=== PATIENT | male | born 1980 | race Caucasian/White ===

== ENCOUNTER 2020-03-23 10:12 | Emergency (ER) | payer OTHER ==
--- NOTE | 2020-03-23 11:16 | RAD REPORT ---
EXAM DESCRIPTION: CT - Head Brain Wo Cont - 03/23/2020 11:08 am CLINICAL HISTORY: VISUAL DISTURBANCES Headache, drowsiness COMPARISON: No comparisons TECHNIQUE: All CT scans are performed using dose optimization technique as appropriate and may inclu de automated exposure control or mA/KV adjustment according to patient size. FINDINGS: No intracranial hemorrhage, hydrocephalus or extra-axial fluid collection.No areas of brai n edema or evidence of midline shift. The paranasal sinuses and mastoids are clear. The calvarium is intact. IMPRESSION: No acute intracranial abnormality.
[2020-03-23 11:33] LABS: Absolute Lymphocytes (CBC) 1.5 K/uL (0.7-4.9); Basophils % 0.7 % (0-1.3); Hematocrit 49.8 % (39.6-49.0); Lymphocytes % 28.9 % (15.3-44.8); MPV 8.6 fL (7.6-11.3); RBC Red Blood Cell Count 5.86 M/uL (4.33-5.43)
[2020-03-23 11:41] LABS: Protime INR 0.97
--- NOTE | 2020-03-23 11:46 | RAD REPORT ---
EXAM DESCRIPTION: CT - Head angio - 03/23/2020 11:30 am CLINICAL HISTORY: transient blurred left eye vision Headache, drowsiness COMPARISON: Head Brain Wo Cont dated 03/23/2020; Neck Angio dated 03/23/2020 TECHNIQUE: CT angiography of the head was performed with MIPs. All CT scans are performed using dose optimization technique as appropriate and may include automated exposure control or mA/KV adjustment according to patient size. FINDINGS: No evidence of aneurysm is detected. No flow-limiting stenosis or vascular malformation id entified. Antegrade flow is seen in the vertebral arteries. Left-sided dominant vertebral artery. The visualized dural venous sinuses are patent. IMPRESSION: No significant flow abnormality is detected.
--- NOTE | 2020-03-23 11:51 | RAD REPORT ---
EXAM DESCRIPTION: CT - Neck Angio - 03/23/2020 11:33 am CLINICAL HISTORY: neck pain, blurred vision Headache, drowsiness COMPARISON: No comparisons TECHNIQUE: CT angiography of the neck vessels was performed with MIPs. All CT scans are performed using dose optimization technique as appropriate and may include automated exposure control or mA/KV adjustment according to patient size. FINDINGS: A left aortic arch is identified with normal three vessel configuration of the great vesse ls. No significant flow abnormality is seen of the common carotid bilaterally. No significant stenosis is identified involving the cervical segments of both internal carotid arteri es. Normal flow is seen within both vertebral arteries. IMPRESSION: No significant flow abnormality of the neck vessels is identified.
--- NOTE | 2020-03-23 12:21 | ER ---
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 Also reports pain hb in back of neck x 1 month. VAN NEGATIVE. Coronavirus screen: Proceed with normal triage. Ebola Screen: No symptoms or risks identified at this time. Initial Sepsis Screen: Does the patient meet any 2 criteria? No. Patient's initial sepsis screen is negative. Does the patient have a suspected source of infection? No. Patient's initial sepsis screen is negative. Risk Assessment: Do you want to hurt yourself or someone else? Patient reports no desire to harm self or others. Onset of symptoms was March 23, 2020. 10:36 Method Of Arrival: Ambulatory hb 10:36 Acuity: JOSE ANTONIO 3 hb Historical: - Allergies: 10:39 No Known Allergies; hb - Home Meds: 10:39 None [Active]; hb - PMHx: 10:39 Hypertension; High Cholesterol; hb - PSHx: 10:39 None; hb - Immunization history:: Adult Immunizations up to date. - Social history:: Smoking status: Patient denies any tobacco usage or history of. - Family history:: not pertinent. - Hospitalizations: : No recent hospitalization is reported. Screenin:53 Abuse screen: Denies threats or abuse. Nutritional screening: No deficits noted. Tuberculosis screening: No symptoms or risk factors identified. Fall Risk None identified. Assessment: 11:21 General: Appears in no apparent distress. Behavior is calm, cooperative. Pain: Complains of pain in occipital area and base of the skull Pain does not radiate. Quality of pain is described as burning, tender, Pain began about 1 month. Neuro: Level of Consciousness is awake, alert, obeys commands, Oriented to person, place, time, situation, Appropriate for age Software Systems Architect are equal bilaterally Gait is steady, Speech is normal, Facial symmetry appears normal, Pupils are PERRLA, Intact Reports trouble with vision in left eye for approx 30 mins today. Resolved as he arrived to ER. Cardiovascular: Heart tones S1 S2 present Capillary refill < 3 seconds Patient's skin is warm and dry. Respiratory: Airway is patent Respiratory effort is even, unlabored, Respiratory pattern is regular, symmetrical. Derm: Skin is intact, is healthy with good turgor, Skin is pink, warm \T\ dry. Musculoskeletal: Circulation, motion, and sensation intact. Capillary refill < 3 seconds. 12:25 Reassessment: Discharge instructions given. Advised Pt to schedule follow up appt and return if symptoms return or worsen. pt voiced understanding. Vital Signs: 10:36 BP 157 / 87; Pulse 88; Resp 16; Temp 97.8; Pulse Ox 97% ; Weight 99.79 kg; Height 6 ft. hb 2 in. (187.96 cm); Pain 2/10; 11:03 BP 141 / 84; Pulse 81; Resp 18; Pulse Ox 98% ; ah 12:00 BP 129 / 85; Pulse 69; Resp 17; Pulse Ox 95% ; ah 10:36 Body Mass Index 28.25 (99.79 kg, 187.96 cm) hb ED Course: 10:18 Patient arrived in ED. fj1 10:39 Triage completed. hb 10:39 Arm band placed on. hb 10:53 Gerardo Petty MD is Attending Physician. rn 11:09 Head Brain Wo Cont CT In Process Unspecified. EDMS 11:09 Cyndi Stewart, RN is Primary Nurse. ah 11:20 Initial lab(s) drawn, by ms, sent to lab. Missed attempt(s): 20 gauge in right ah antecubital area. Bleeding controlled, band aid applied, catheter tip intact. 11:30 CT Head Angio In Process Unspecified. EDMS 11:31 CT Neck Angio In Process Unspecified. EDMS 11:52 Inserted saline lock: 22 gauge in left antecubital area, using aseptic technique. ah 11:53 Patient has correct armband on for positive identification. Bed in low position. Call light in reach. Side rails up X 1. Pulse ox on. NIBP on. 12:20 Blessing Lopez MD is Referral Physician. rn 12:33 No provider procedures requiring assistance completed. IV discontinued, intact, bleeding controlled, No redness/swelling at site. Pressure dressing applied. Administered Medications: No medications were administered Outcome: 12:20 Discharge ordered by . rn 12:34 Discharged to home ambulatory. 12:34 Condition: good 12:34 Discharge instructions given to patient, Instructed on discharge instructions, follow up and referral plans. Demonstrated understanding of instructions, follow-up care. 12:35 Patient left the ED. Signatures: Dispatcher [employer] Gerardo Wick MD MD rn Baxter, Heather RN Mac Escamilla fj1 Cyndi Stewart RN JALEN
--- NOTE | 2020-03-23 12:21 | EDPHYS ---
Physician Documentation [facility] Name: Koko Davis Age: 39 yrs Sex: Male : 1980 Arrival Date: 03/23/2020 Time: 10:18 Bed 18 Private MD: ED Physician Gerardo Petty HPI: 03/23 11:37 This 39 yrs old Male presents to ER via Ambulatory with complaints of Blurred rn Vision, Neck Problem. 11:37 The patient or guardian complains of pain. The symptoms are located diffusely. Onset: rn The symptoms/episode began/occurred 1 month(s) ago. Associated signs and symptoms: Pertinent positives: visual disturbance. The pain does not radiate. Modifying factors: The symptoms are alleviated by nothing. the symptoms are aggravated by nothing. Severity of symptoms: At their worst the symptoms were mild, in the emergency department the symptoms have resolved. The patient has not experienced similar symptoms in the past. Reports neck pain for 1 month, no trauma, assoc with left visual disturbance today, resolved prior to arrival. Reports had "mirage" linear visual disturbance left eye, slowly improved, denies loss of vision. No eye pain. Has never happened before. Not assoc with other neurological complaints. Now resolved and back to baseline.. Historical: - Allergies: 10:39 No Known Allergies; hb - Home Meds: 10:39 None [Active]; hb - PMHx: 10:39 Hypertension; High Cholesterol; hb - PSHx: 10:39 None; hb - Immunization history:: Adult Immunizations up to date. - Social history:: Smoking status: Patient denies any tobacco usage or history of. - Family history:: not pertinent. - Hospitalizations: : No recent hospitalization is reported. ROS: 11:37 Constitutional: Negative for fever, chills, and weight loss, Eyes: Negative for injury, rn pain, redness, and discharge, Neck: Negative for injury, and swelling, Cardiovascular: Negative for chest pain, palpitations, and edema, Respiratory: Negative for shortness of breath, cough, wheezing, and pleuritic chest pain, Abdomen/GI: Negative for abdominal pain, nausea, vomiting, diarrhea, and constipation, MS/Extremity: Negative for injury and deformity, Skin: Negative for injury, rash, and discoloration, Neuro: Negative for headache, weakness, numbness, tingling, and seizure. Exam: 11:37 Constitutional: This is a well developed, well nourished patient who is awake, alert, rn and in no acute distress. Standing in room. Head/Face: Normocephalic, atraumatic. Eyes: Pupils equal round and reactive to light, extra-ocular motions intact. Lids and lashes normal. Conjunctiva and sclera are non-icteric and not injected. Cornea within normal limits. Periorbital areas with no swelling, redness, or edema. No nystagmus. Cardiovascular: Regular rate and rhythm. No pulse deficits. Respiratory: Speaking full sentences. No increased work of breathing, no retractions or nasal flaring. Skin: Warm, dry MS/ Extremity: Pulses equal, no cyanosis. Neuro: Awake and alert, GCS 15, oriented to person, place, time, and situation. Cranial nerves II-XII grossly intact. Motor strength 5/5 in all extremities. Sensory grossly intact. Cerebellar exam normal. Normal gait. Vital Signs: 10:36 BP 157 / 87; Pulse 88; Resp 16; Temp 97.8; Pulse Ox 97% ; Weight 99.79 kg; Height 6 ft. hb 2 in. (187.96 cm); Pain 2/10; 11:03 BP 141 / 84; Pulse 81; Resp 18; Pulse Ox 98% ; ah 12:00 BP 129 / 85; Pulse 69; Resp 17; Pulse Ox 95% ; ah 10:36 Body Mass Index 28.25 (99.79 kg, 187.96 cm) hb MDM: 10:53 Patient medically screened. rn 12:18 Differential diagnosis: arthritis, Cervical Disc Herniation Cervical Raiculopathy architect intern problem, aneurysm, dissection, amaurosis, ocular migraine, vascular spasm, retinal problem. Data reviewed: vital signs, nurses notes, lab test result(s), radiologic studies, CT scan, and as a result, I will discharge patient. Counseling: I had a detailed discussion with the patient and/or guardian regarding: the historical points, exam findings, and any diagnostic results supporting the discharge/admit diagnosis, lab results, radiology results, the need for outpatient follow up, to return to the emergency department if symptoms worsen or persist or if there are any questions or concerns that arise at home. Response to treatment: the patient's symptoms have resolved after treatment, and as a result, I will discharge patient. Special discussion: I discussed with the patient/guardian in detail that at this point there is no indication for admission to the hospital. It is understood, however, that if the symptoms persist or worsen the patient needs to return immediately for re-evaluation. Based on the history and exam findings, there is no indication for further emergent testing or inpatient evaluation. I discussed with the patient/guardian the need to see the opthamologist for further evaluation of the symptoms, I discussed with the patient/guardian the need to see the primary care provider for further evaluation of the symptoms. ED course: Recommend good eye exam by ophtho, and pcp referral for MRI cspine. All results explained and printed out for patient. . 03/23 11:08 Order name: CBC with Diff; Complete Time: 11:58 rn 03/23 11:08 Order name: Basic Metabolic Panel; Complete Time: 11:58 rn 03/23 10:42 Order name: Head Brain Wo Cont CT; Complete Time: 11:58 hb 03/23 11:08 Order name: Protime (+inr); Complete Time: 11:58 rn 03/23 11:08 Order name: Ptt, Activated; Complete Time: 11:58 rn 03/23 11:44 Order name: CREATININE WHOLE BLOOD; Complete Time: 11:58 EDMS 03/23 11:08 Order name: IV Start; Complete Time: 11:52 rn 03/23 11:08 Order name: CT Head Angio; Complete Time: 11:58 rn 03/23 11:08 Order name: CT Neck Angio; Complete Time: 11:58 rn Administered Medications: No medications were administered Disposition: 03/23/20 12:20 Discharged to Home. Impression: Visual disturbances. - Condition is Stable. - Discharge Instructions: Blurred Vision, Adult. - Medication Reconciliation Form, Thank You Letter, Antibiotic Education, Prescription Opioid Use form. - Follow up: Blessing Lopez MD; When: As needed; Reason: Recheck today's complaints, Re-evaluation by your physician. - Problem is new. - Symptoms are resolved. Signatures: Dispatcher [employer] EDMS Gerardo Petty MD MD rn Baxter, Heather, RN RN hb Harris, Amy, RN RN Corrections: (The following items were deleted from the chart) 12:35 12:20 03/23/2020 12:20 Discharged to Home. Impression: Visual disturbances. Condition ah is Stable. Forms are Medication Reconciliation Form, Thank You Letter, Antibiotic Education, Prescription Opioid Use. Follow up: Blessing Lopez; When: As needed; Reason: Recheck today's complaints, Re-evaluation by your physician. Problem is new. Symptoms are resolved. rn
[2020-03-23 12:41] VITALS: TEMP 97.8
[2020-03-23 12:43] VITALS: BP 129/85; O2SAT 95
== END 2020-03-23 12:35 | disposition home or self-care (01) ==
LOC: ER 10:12
DX: H53.9 Unspecified visual disturbance (principal); I10 Essential (primary) hypertension
CPT/HCPCS: 85025; 80048; 36415; 85610; 82565; 85730; 70450; 70496; 70498; 99284; Q9967